=== PATIENT | female | born 1945 | race Caucasian/White ===

== ENCOUNTER 2022-02-26 07:19 | Day surgery (SDC) | payer MEDICARE ==
[~2022-02-26] VITALS: Ht 162.6 cm; Wt 90.9 kg
[~2022-02-26 07:19] MED LIST: ALBU8HFA INH; ASPI-611 PO; FLUT1BLS4 INH
[2022-02-26] MEDS ORDERED: fentaNYL/PF 50MCG/1 ML 2ML syringe ONE ×2 (07:33→07:50)
[2022-02-26] MEDS ORDERED: MIDAZolam 1 MG/ML 5ML VIAL ONE ×2 (07:34→07:50)
[2022-02-26 07:35] VITALS: BP 126/92
[2022-02-26 08:37] VITALS: BP 112/76
[2022-02-26 08:47] VITALS: BP 102/62
[2022-02-26 08:57] VITALS: BP 110/86
[2022-02-26 09:07] VITALS: BP 118/79
== END 2022-02-26 09:15 | disposition home or self-care (01) ==
LOC: GI LAB 07:19
PROVIDERS: ATTEND Internal Medicine Gastroenterology
DX: R10.32 Left lower quadrant pain (principal); K57.30 Diverticulosis of large intestine without perforation or abscess without bleeding; K43.9 Ventral hernia without obstruction or gangrene; J44.9 Chronic obstructive pulmonary disease, unspecified; E66.9 Obesity, unspecified; Z68.34 Body mass index [BMI] 34.0-34.9, adult; Z88.8 Allergy status to other drugs, medicaments and biological substances; Z99.81 Dependence on supplemental oxygen; Z79.899 Other long term (current) drug therapy
CPT/HCPCS: 45378; G0500; J2250; J3010; J7030; Z7512; 99152; 99153; A4620